=== PATIENT | female | born 1980 | race Caucasian/White ===

== ENCOUNTER 2016-07-26 00:07 | Emergency (ER) | payer MEDICAID ==
[~2016-07-26] VITALS: Ht 152.4 cm; Wt 54.4 kg
[2016-07-26 00:10] VITALS: BP 109/77
== END 2016-07-26 01:21 | disposition home or self-care (01) ==
LOC: ER 00:11
DX: M25.561 Pain in right knee (principal)
CPT/HCPCS: 73564-TC; A4606; Z7610